=== PATIENT | male | born 1970 | race Caucasian/White ===

== ENCOUNTER 2018-04-27 10:36 | Emergency (ER) | payer OTHER ==
--- NOTE | 2018-04-27 10:41 | EDPHY ---
H & P Stated Complaint: seizure Time Seen by Provider: 04/27/18 10:39 HPI/ROS: CHIEF COMPLAINT: Seizure HISTORY OF PRESENT ILLNESS: 47-year-old male history of seizure disorder on daily Keppra, has not missed any dosages, arrives via ambulance after coworkers witnessed a seizure. They were able to lower him to the ground. Positive postictal upon EMS arrival with progressive clearing en route No head injury. History of daily alcohol use typically 6 shots of alcohol per evening which he consumed last evening. Primary neurologist is Dr. Joanna Coy in [place] REVIEW OF SYSTEMS: 10 systems reviewed and negative with the exception of the elements mentioned in the history of present illness PAST MEDICAL/SURGICAL HISTORY: Seizure disorder. History of heavy daily alcohol use. Traumatic brain injury. no anticoagulant use, SOCIAL HISTORY: Last drink of alcohol last evening PHYSICAL EXAM 1) GENERAL: Well-developed, well-nourished, alert and oriented. Appears to be in no acute distress. Answering questions appropriately. 2) HEAD: Normocephalic, atraumatic 3) HEENT: Pupils equal, round, reactive to light bilaterally. Negative Horners. Nasopharynx, oropharynx, clear. No tongue trauma. No deformity or angulation of nose. No septal hematoma. No rhinorrhea. No oral trauma. Ears bilaterally with normal tympanic membranes. No hemotympanum. No fluid or blood in the external auditory canal. No raccoon eyes. No Julien sign. Teeth are normally aligned with no gross malocclusion, TMJ bilaterally nontender, facial bones nontender including the zygomatic arch, maxilla mandible. 4) NECK: No cervical collar is on. Posterior cervical spine is nontender, no stepoff, no effusion. Full range of motion which does not elicit any midline cervical spine pain, no posterior midline tenderness, no step-off. 5) LUNGS: Clear to auscultation bilaterally, no wheezes, no rhonchi, no retractions. No obvious signs of trauma. No chest wall pain. No flaring, no grunting. Moving symmetrically. No crepitus. 6) HEART: Regular rate and rhythm, 7) ABDOMEN: No guarding, no rebound, no focal tenderness, no peritoneal signs, no signs of trauma, no ecchymosis 8) MUSCULOSKELETAL: Moving all extremities, no focal areas of tenderness, no obvious trauma. 9) BACK: No midline vertebral tenderness, no fluctuance, no step-off, no obvious trauma, no visual or palpable abnormality. 10) SKIN: No laceration. No abrasion 11) NEURO: Awake, alert, and oriented to person, place and time. Answers questions appropriately. There were no obvious focal neurologic abnormalities. No cerebellar dysfunction. Cranial nerves 2 through to 12 intact. Normal steady gait. Upper and lower extremities bilaterally with strength 5 / 5, reflexes 2+. DIFFERENTIAL DIAGNOSIS: In no particular include but limited to breakthrough seizure, medication noncompliance, acute alcohol withdrawal seizure, delirium tremens - Medical/Surgical History Other PMH: seizures Constitutional: Initial Vital Signs Temperature (C) 36.8 C 04/27/18 10:38 Heart Rate 81 04/27/18 10:38 Respiratory Rate 18 04/27/18 10:38 Blood Pressure 165/105 H 04/27/18 10:38 O2 Sat (%) 95 04/27/18 10:38 O2 Delivery Mode Room Air O2 (L/minute) 2 Allergies/Adverse Reactions: No Known Allergies Allergy (Unverified 04/27/18 10:42) Home Medications: Medication Instructions Recorded [facility] 04/27/18 Medical Decision Making - Diagnostics Imaging Results: Imaging Impressions Head CT 04/27/18 10:47 Impression: 1. 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 2. No acute hemorrhage, hydrocephalus or mass effect. 3. Consider MRI of the brain, if there is continued clinical concern. Findings and recommendations discussed with Emergency Department physician, Kamila Katz at 1202 hour, 04/27/2018. Final report concurs with initial preliminary interpretation. Images reviewed myself ED Course/Re-evaluation: 10:47 a.m.: I reviewed patient's medical records access via [employer] showing emergency department visit at [facility] ER in January for seizure 12:01 p.m.: Patient re-evaluated awake alert oriented person place time events. He is complaining of mild epigastric discomfort has mild discomfort with palpation. Will check lipase given his history of heavy alcohol use PE 12:25 p.m.: Re-evaluation. Discussed with him his laboratory studies including his LFTs and lipase which were both normal. He is answering questions appropriately. Patient I discussed possible etiologies including, but not limited to, breakthrough seizure, acute alcohol withdrawal seizure. I highly recommend he try to remain sober from alcohol. We discussed the risks of sudden cessation of alcohol. At this time the presence of no evidence of delirium, answering questions appropriately I do not think that hospitalization is indicated. He would like to be discharged. Recommend stay compliant with his Keppra and follow up with his neurologist. I saw this patient independently based on established practice protocols. Care of patient under supervision of secondary supervising physician Dr Ravi Griffiths. - Data Points Laboratory Results: Laboratory Results 04/27/18 09:30 04/27/18 09:30 04/27/18 04/27/18 04/27/18 10:30 09:30 09:30 WBC 10.19 10^3/uL H 10^3/uL (3.80-9.50) RBC 4.47 10^6/uL 10^6/uL (4.40-6.38) Hgb 14.1 g/dL g/dL (13.7-17.5) Hct 42.2 % % (40.0-51.0) MCV 94.4 fL fL (81.5-99.8) MCH 31.5 pg pg (27.9-34.1) MCHC 33.4 g/dL g/dL (32.4-36.7) RDW 13.7 % % (11.5-15.2) Plt Count 250 10^3/uL 10^3/uL (150-400) MPV 10.8 fL fL (8.7-11.7) Neut % (Auto) 69.5 % % (39.3-74.2) Lymph % (Auto) 19.9 % % (15.0-45.0) [place] % (Auto) 6.7 % % (4.5-13.0) Eos % (Auto) 2.1 % % (0.6-7.6) Baso % (Auto) 1.1 % % (0.3-1.7) Nucleat RBC Rel Count 0.0 % % (0.0-0.2) Absolute Neuts (auto) 7.09 10^3/uL H 10^3/uL (1.70-6.50) Absolute Lymphs (auto) 2.03 10^3/uL 10^3/uL (1.00-3.00) Absolute Monos (auto) 0.68 10^3/uL 10^3/uL (0.30-0.80) Absolute Eos (auto) 0.21 10^3/uL 10^3/uL (0.03-0.40) Absolute Basos (auto) 0.11 10^3/uL H 10^3/uL (0.02-0.10) Absolute Nucleated RBC 0.00 10^3/uL 10^3/uL (0-0.01) Immature Gran % 0.7 % % (0.0-1.1) Immature Gran # 0.07 10^3/uL 10^3/uL (0.00-0.10) Sodium 140 mEq/L mEq/L (135-145) Potassium 3.7 mEq/L mEq/L (3.3-5.0) Chloride 100 mEq/L mEq/L (97-110) Carbon Dioxide 20 mEq/l L mEq/l (22-31) Anion Gap 20 mEq/L H mEq/L (8-16) BUN 15 mg/dL mg/dL (7-23) Creatinine 0.9 mg/dL mg/dL (0.7-1.3) Estimated GFR > 60 Glucose 116 mg/dL H mg/dL (70-100) Calcium 9.0 mg/dL mg/dL (8.5-10.4) Total Bilirubin 0.5 mg/dL mg/dL (0.1-1.4) Conjugated Bilirubin 0.2 mg/dL mg/dL (0.0-0.5) Unconjugated Bilirubin 0.3 mg/dL mg/dL (0.0-1.1) AST 39 IU/L IU/L (17-59) ALT 35 IU/L IU/L (21-72) Alkaline Phosphatase 85 IU/L IU/L (38-126) Total Protein 7.5 g/dL g/dL (6.3-8.2) Albumin 4.5 g/dL g/dL (3.5-5.0) Lipase 52 IU/L IU/L (23-300) Ethyl Alcohol < 10 mg/dL mg/dL (0-10) Departure - Departure Disposition: Home, Routine, Self-Care Clinical Impression: Seizure Condition: Good Instructions: Epilepsy (ED) Additional Instructions: Please take your medication as prescribed. Please consider long-term sobriety from alcohol. Referrals: Follow-up, with your neurologist in 2-3 days [Other] - As per Instructions Jose Otero MD [Medical Doctor] - 2-3 days, call for appt. (Dr. Jose Otero is a neurologist)
[2018-04-27 10:54] LABS: PLATELET COUNT 250 10^3/uL (150-400)
[2018-04-27 12:56] VITALS: BP 161/98
== END 2018-04-27 12:55 | disposition home or self-care (01) ==
LOC: EDUNIT#
DX: G40.89 Other seizures (principal)
CPT/HCPCS: G0480